=== PATIENT | female | born 2000 | race American Indian/Alaskan Native ===

== ENCOUNTER 2019-11-10 21:57 | Outpatient (CLI) | payer MEDICAID ==
[2019-11-10 22:19] VITALS: BP 123/72
== END 2019-11-10 22:45 | disposition home or self-care (01) ==
LOC: TRG 21:57 → APU 22:06 → TRG 22:45
PROVIDERS: ATTEND Obstetrics & Gynecology
DX: O42.913 Preterm premature rupture of membranes, unspecified as to length of time between rupture and onset of labor, third trimester (principal); Z3A.39 39 weeks gestation of pregnancy
CPT/HCPCS: 59025

== ENCOUNTER 2019-11-11 21:19 | Inpatient (IN) | payer MEDICAID ==
[2019-11-11] MEDS ORDERED: MINERAL OIL 30 ML ORAL LIQD PO PRN (23:15)
[2019-11-11] MEDS ORDERED: TERBUTALINE 1 MG/1 ML INJ IVP PRN (23:15)
[2019-11-11] MEDS ORDERED: ePHEDrine SULFATE 50 MG/1 ML INJ IV PRN (23:15)
[2019-11-11] MEDS ORDERED: LIDOCAINE (2%) 20 MG/1 ML VIAL 20 ML MDV INFILTRATI ONE (23:15)
[2019-11-11] MEDS ORDERED: TERBUTALINE 1 MG/1 ML INJ SUB-Q PRN (23:15)
[2019-11-11] MEDS ORDERED: BUTORPHANOL 2 MG/1 ML INJ IV PRN (23:15)
[2019-11-11] MEDS ORDERED: ONDANSETRON 4 MG/2 ML INJ IV PRN (23:15)
[2019-11-11] MEDS ORDERED: ZOLPIDEM 5 MG TAB PO PRN (23:17)
[2019-11-11] MEDS ORDERED: OXYTOCIN DRIP 30 UNITS/500 ML BAG IV SCH (23:45)
[2019-11-11] MEDS ORDERED: OXYTOCIN 20 UNIT/1000ML DRIP 20 UNITS/1,000 ML BAG IV SCH (23:45)
[2019-11-12 00:13] LABS: Hematocrit 32.4 % (30.3-42.9); Hemoglobin 10.3 gm/dl (10.1-14.3); Mean Corpuscular HGB Conc 32 % (30-34); Mean Corpuscular Volume 76 fl (79-97); Platelet Count 196 K/mm3 (140-440); Red Cell Distribution Width 17.6 % (13.2-15.2)
[2019-11-12] MEDS ORDERED: NALOXONE 2 MG/2 ML INJ IV PRN (01:52)
[2019-11-12] MEDS ORDERED: ePHEDrine SULFATE 50 MG/1 ML INJ IV PRN (01:52)
--- NOTE | 2019-11-12 01:54 | Anesthesia Consultation ---
Anesthesia Consult and Med Hx Date of service: 11/12/19 - Airway Anesthetic Teeth Evaluation: Good ROM Head & Neck: Adequate Mental/Hyoid Distance: Adequate Mallampati Class: Class II Intubation Access Assessment: Probably Good - Pulmonary Exam CTA: Yes - Cardiac Exam Cardiac Exam: RRR - Pre-Operative Health Status ASA Pre-Surgery Classification: ASA2 Proposed Anesthetic Plan: Epidural - Pulmonary Hx Smoking: No Hx Asthma: Yes ( A CHILD) Hx Respiratory Symptoms: No SOB: No COPD: No Home Oxygen Therapy: No Hx Pneumonia: No Hx Sleep Apnea: No - Cardiovascular System Hx Hypertension: No Hx Coronary Artery Disease: No Hx Heart Attack/AMI: No Hx Angina: No Hx Percutaneous Transluminal Coronary Angioplasty (PTCA): No Hx Cardia Arrhythmia: No Hx Pacemaker: No Hx Internal Defibrillator: No Hx Valvular Heart Disease: No Hx Heart Murmur: No Hx Peripheral Vascular Disease: No - Central Nervous System Hx Neuromuscular Disorder: No Hx Seizures: No CVA: No Hx Back Pain: No Hx Psychiatric Problems: No - Gastrointestinal Hx Ulcer: No Hx Gastroesophageal Reflux Disease: Yes - Endocrine Hx Renal Disease: No Hx End Stage Renal Disease: No Hx Cirrhosis: No Hx Liver Disease: No Hx Insulin Dependent Diabetes: No Hx Non-Insulin Dependent Diabetes: No Hx Thyroid Disease: No Hx Hypothyroidism: No Hx Hyperthyroidism: No - Hematic Hx Anemia: No Hx Sickle Cell Disease: No - Other Systems Hx Alcohol Use: Yes (NOT RECENTLY) Hx Substance Use: No Hx Cancer: No Hx Obesity: No
--- NOTE | 2019-11-12 01:59 | Progress Note ---
Labor Epidural - Labor Epidural Start Time: 01:23 Stop Time: 01:37 Performed by:: SOPHIA BURGER Procedure: labor Epidural Patient is requesting a laboring epidural for laboring pain. Patient IDed, H&P reviewed, all questions and concerns were answered, and consent was signed. Timeout was performed at bedside. Patient in sitting position. Sterile prep and drape was performed. [3] ml of 1% lidocaine skin wheal at L[3]- L [4]. 18- gauge Touhy epidural needle was advanced to loss of resistance with air technique to 7cm. Negative CSF negative, negative blood. Epidural catheter advanced to [12] centimeters. [negative] Aspiration [negative] test dose. Sterile dressing applied. Patient tolerated procedure.
[2019-11-12] MEDS ORDERED: fentaNYL-BUPIV 2 MCG/ML-0.125% 200 MCG/100 ML BAG EPIDURAL ONE (02:00)
[2019-11-12] MEDS: LACTATED RINGERS 1,000 ML IV SCH ×2 (02:11→08:36)
[2019-11-12] MEDS: fentaNYL-BUPIV 2 MCG/ML-0.125% 200 MCG/100 ML BAG EPIDURAL SCH ×2 (02:11→11:10)
--- NOTE | 2019-11-12 08:05 | History and Physical Report ---
History of Present Illness Date of examination: 11/12/19 Date of admission: 11/11/19 23:26 Chief complaint: contractions History of present illness: This is a 19 yo EDC 11/13/19 at 39+6 weeks here for contractions. She is patient of Dr. Mccormick here in labor. She was a transfer patient from [facility]. Past History Past Medical History: no pertinent history Past Surgical History: no surgical history Family/Genetic History: hypertension, stroke Social history: single. denies: smoking, alcohol abuse, prescription drug abuse - Obstetrical History Expected Date of Delivery: 11/13/19 Actual Gestation: 39 Week(s) 6 Day(s) : 3 Para: 0 Hx # Term Pregnancies: 0 Number of Pregnancies: 0 Spontaneous Abortions: 2 Induced : 0 Number of Living Children: 0 Medications and Allergies Allergies Allergy/AdvReac Type Severity Reaction Status Date / Time amoxicillin Allergy Rash Verified 11/11/19 23:08 Home Medications Medication Instructions Recorded Confirmed Last Taken Type No Known Home Medications [No 11/11/19 11/11/19 Unknown History Reported Home Medications] Active Meds: Active Medications Butorphanol Tartrate (Stadol) 2 mg IV Q2H PRN PRN Reason: Pain , Severe (7-10) Ephedrine Sulfate (Ephedrine Sulfate) 10 mg IV Q2M PRN PRN Reason: Hypotension Oxytocin/Sodium Chloride (Pitocin/Ns 20 Unit/1000ml Drip) 20 units in 1,000 mls @ 125 mls/hr IV DIRECT MAGGI Oxytocin/Sodium Chloride (Pitocin/Ns 30 Unit/500ml) 30 units in 500 mls @ 1 mls/hr IV TITR MAGGI; Protocol Lactated Ringer's (Lactated Ringers) 1,000 mls @ 125 mls/hr IV DIRECT MAGGI Last Admin: 11/12/19 02:11 Dose: 125 mls/hr Documented by: Fentanyl/Bupivacaine/Sodium Chlor (Fentanyl-Bupiv 2 Mcg/Ml-0.125%) 200 mcg in 100 mls @ 12 mls/hr EPIDURAL TITR MAGGI; Protocol Last Admin: 11/12/19 02:11 Dose: 12 mls/hr Documented by: Mineral Oil (Mineral Oil) 30 ml PO QHS PRN PRN Reason: Constipation Naloxone HCl (Naloxone) 0.2 mg IV Q5M PRN PRN Reason: Respiratory sedation Ondansetron HCl (Zofran) 4 mg IV Q8H PRN PRN Reason: Nausea And Vomiting Terbutaline Sulfate (Brethine) 0.25 mg SUB-Q ONCE PRN PRN Reason: Hyperstimulation/Hypertonicity Terbutaline Sulfate (Brethine) 0.25 mg IVP ONCE PRN PRN Reason: Hyperstimulation/Hypertonicity Zolpidem Tartrate (Ambien) 5 mg PO QHS PRN PRN Reason: Sleep Review of Systems All systems: negative Genitourinary: contractions - Vital Signs Vital signs: Vital Signs Temp Pulse Resp BP Pulse Ox 99.3 F 113 H 18 130/80 99 11/11/19 21:31 11/11/19 21:31 11/11/19 21:31 11/11/19 21:31 11/11/19 21:31 Temp Pulse Resp BP Pulse Ox 99.0 F 97 H 18 182/66 97 11/12/19 07:18 11/12/19 07:58 11/11/19 21:31 11/12/19 07:33 11/12/19 07:58 - Physical Exam Breasts: Positive: normal Cardiovascular: Regular rate, Normal S1 Lungs: Positive: Clear to auscultation, Normal air movement Abdomen: Positive: normal appearance, soft. Negative: distention, tenderness, guarding Genitourinary (Female): Positive: normal external genitalia, normal perenium Vagina: Positive: normal moisture Uterus: Positive: normal size Extremities: Positive: normal - Obstetrical FHR: category 1 Cervical Dilatation: 8 Cervical Effacement Percentage: 100 station: -2 Uterine Contraction Pattern: Regular Uterine Tone Measurement Phase: Contraction Uterine Contraction Intensity: Moderate Results Result Diagrams: 11/11/19 23:50 Abnormal lab results 11/11/19 Range/Units 23:50 WBC 11.9 H (4.5-11.0) K/mm3 MCV 76 L (79-97) fl MCH 24 L (28-32) pg RDW 17.6 H (13.2-15.2) % All other labs normal. Assessment and Plan A/P HD#1 active labor GBS neg offer epidural expect vaginal delivery
[2019-11-12] MEDS ORDERED: BUPIVACAINE/PF (0.25%) 2.5 MG/ML 10 ML VIAL INFILTRATI ONE (12:33)
--- NOTE | 2019-11-12 13:17 | Event Note ---
Date: 11/12/19 Patient sustaioned watson to 60s lasted 3min. She previously had meconium. Discussed NRFHT with patient and recommended primary sec with all risk discussed including but not limited to bleeding infection damage to pelvic and non pelvc organs, hysterectomy and . patient desires to proceed.
[2019-11-12] MEDS ORDERED: ONDANSETRON 4 MG/2 ML INJ IV PRN (13:37)
[2019-11-12] MEDS ORDERED: NALOXONE 0.4 MG/1 ML INJ IV PRN ×2 (13:37→14:53)
[2019-11-12] MEDS ORDERED: HYDROmorphone 1 MG/1 ML INJ IV PRN (13:37)
--- NOTE | 2019-11-12 13:37 | Anesthesia Day of Surgery ---
Anesthesia Day of Surgery - Day of Surgery Patient Examined: Yes Patient H&P Reviewed: Yes Patient is NPO: Yes Beta Blockers: No Cardiac Clearance: No Pulmonary Clearance: No Bernardo's Test: N/A
[2019-11-12] MEDS ORDERED: LIDOCAINE MPF (2%) 20 MG/1 ML VIAL 5 ML ONE (13:53)
[2019-11-12] MEDS ORDERED: WATER FOR IRRIG STERILE 1,500 ML BOTTLE IR ONE (13:55)
[2019-11-12] MEDS ORDERED: SODIUM CHLORIDE 0.9% IRR 1,500 ML BOTTLE IR ONE (13:55)
[2019-11-12] MEDS ORDERED: BICITRA ORAL LIQD 30ML PO ONE (14:00)
[2019-11-12] MEDS ORDERED: FAMOTIDINE 20 MG/2 ML INJ IV ONE (14:00)
[2019-11-12] MEDS ORDERED: LACTATED RINGERS 1,000 ML IV SCH (14:00)
[2019-11-12] MEDS ORDERED: OXYTOCIN 20 UNIT/1000ML DRIP 20 UNITS/1,000 ML BAG IV SCH ×2 (14:00→15:00)
[2019-11-12] MEDS ORDERED: METOCLOPRAMIDE 10 MG/2 ML INJ IV ONE (14:00)
[2019-11-12] MEDS ORDERED: ceFAZolin/Water 2 GM/20 ML 2 GM/20 ML SYRINGE IV NR (14:00)
[2019-11-12] MEDS ORDERED: OXYTOCIN 10 UNIT/1 ML INJ ONE (14:31)
[2019-11-12] MEDS ORDERED: METHYLERGONOVINE MALEATE 0.2 MG/ML VIAL IM ONE (14:32)
[2019-11-12] MEDS ORDERED: BUPIVACAINE/PF (0.5%) 5 MG/1 ML 30 ML VIAL INFILTRATI ONE (14:47)
[2019-11-12] MEDS ORDERED: LANOLIN/ZINC/DIMETHICONE (LANSINOH) 7 GM TP PRN (14:53)
[2019-11-12] MEDS ORDERED: WITCH HAZEL/ GLYCERIN PAD TP PRN (14:53)
--- NOTE | 2019-11-12 14:56 | Procedure Note ---
OB Delivery Note - Delivery Date of Delivery: 11/12/19 Surgeon: PJ MELARA Estimated blood loss: other (600cc) - Vaginal Delivery position: OA - Section Preop diagnosis: arrest of descent, nonreassuring FHR tracing Postop diagnosis: same section procedure: section Disposition: PACU Complications: none Narrative: see op note - A at 1 minute: 8 at 5 minutes: 9 Infant Gender: Male
--- NOTE | 2019-11-12 14:59 | Operative Report ---
Operative Report Operative Report: Operative Report: Date of procedure: November 12, 2019 Preoperative diagnosis: 1) IUP at 39+6 2) NRFHT with bradycardia to 60s 3) arrest of descent Postoperative diagnosis: Same + nuichal cord around both legs Procedure: Primary low transverse section Surgeon: Tegan Ramirez MD Anesthesia: Regional Findings: 1) Viable male , Apgars 8 and 9, weight 6 pounds 9 oz cephalic presentation. 2) Normal-appearing uterus ovaries and tubes Estimated blood loss: 600 mL IV fluids: 500 mL Urine output: 100 mL, clear at the end of the procedure Drains: Butler to gravity Specimens: None Complications:None. Counts correct x 3 Disposition: Stable to PACU Indication for procedure: Pt is a 19 year old at 39 weeks was admitted for labor and noted that bradycardia to 60s and nrfht with arrest of descent. Patient proceeded to 9cm and no cervical traveler changer several hours Operation in detail: After the risks, benefits, alternatives and complications were explained to the patient she gave informed consent for the procedure. She was subsequently taken to the operating room where regional anesthesia was noted to be adequate. She was subsequently placed in the dorsal supine position with leftward tilt and prepped and draped in a normal sterile fashion. heart tones were noted prior to incision. A timeout was performed. A Pfannenstiel skin incision was made with the knife and carried down to the layer of the fascia with the Bovie. The fascia was incised in the midline and the fascial incision was extended bilaterally with the Bovie. The fascial incision was then stretched. The rectus muscles were then in the midline and partially transected for adequate visualization. The peritoneum was then entered bluntly. The peritoneal incision was extended with good visualization of the bladder. The peritoneal incision was then stretched. The b ladder blade was then placed. A transverse incision was made in the lower uterine segment with a knife and extended bilaterally with the bandage scissors. Amniotomy was performed with egress of clear fluid. head delivered with ease, followed by shoulders and body. bulb suctioned at delivery. Cord clamped and cut. handed to NICU staff in attendance. Cord blood was collected. The placenta was then delivered manually. The uterus was then exteriorized and cleared of all clots and debris. The hysterotomy was then reapproximated with 0 Vicryl in a running locked fashion. A second layer of the same suture was used in imbricating fashion. The hysterotomy was inspected and hemostasis was noted. The gutters were irrigated and cleared of all clots and debris. The hysterotomy was again inspected and noted to be hemostatic. Surgicel was placed over the hysterotomy. The uterus was placed back in the peritoneal cavity. The peritoneum was reapproximated with 2-0 Vicryl in a running fashion incorporating the rectus muscles. Surgicel was placed over the rectus muscles. The fascia was reapproximated with 0 Vicryl in a running fashion. The subcutaneous tissue was reapproximated with 3-0 Vicryl in a running fashion. The skin was reapproximated with 4-0 Vicryl in a subcuticular fashion. The incision was then covered with steri strips and a pressure dressing. The procedure was then ended. The patient tolerated the procedure well and was taken to the PACU in stable condition. All instrument, lap, and needle counts were correct 3.
[2019-11-12 15:46] LABS: ABG Base Excess -5.2 mmol/L (-2.0-3.0); ABG Methemoglobin 0.7 % (0.0-1.5); ABG Oxygen Saturation 98.8 % (95.0-99.0); ABG PCO2 32.2 mm Hg; ABG PH 7.388 pH Units (7.350-7.450); ABG PO2 146.9 mm Hg (80.0-90.0)
--- NOTE | 2019-11-12 16:55 | Post Anesthesia Evaluation ---
- Post Anesthesia Evaluation Patient Participated: Yes Airway Patent: Yes Stable Respiratory Function: Yes Nausea/Vomiting: No Temp > 96.8F: Yes Pain Manageable: Yes Adequeate Hydration: Yes Anesthesia Complications: No Block Receding Appropriately: Yes Patient on Ventilator: No Other Comments: On arrival to PACU, pt was noted to be unresponsive to painful stimuli but responsive to cold alcohol Prep pads(70% isopropyl alcohol). She was moving her head but not opening eyes to commands. Vital Sign's remained stable thoughout. Few minutes later patient was A&OX3 and following commands but very emotional. Crying and loughing simutaneously. Stating "She is seeing floting oriange triangular shiped objects". PACU stay was uneventful after episode. Patient and boyfriend seems to think the episoide may have been related to her anxiety. ABG was WNL'S. She was discharged from PACU with all V/S stable, A&Ox3 and less anxious.
[2019-11-12] MEDS: MORPHINE 2 MG/1 ML INJ IV PRN ×2 (18:58→21:48)
[2019-11-12 19:01] LABS: Basophils % (Auto) 0.4 % (0.0-1.8); Hematocrit 30.6 % (30.3-42.9); Hemoglobin 9.6 gm/dl (10.1-14.3); Lymphocytes # (Auto) 0.7 K/mm3 (1.2-5.4); Lymphocytes % (Auto) 6.5 % (13.4-35.0); Mean Corpuscular HGB Conc 32 % (30-34); Mean Corpuscular Volume 76 fl (79-97); Monocytes # (Auto) 0.8 K/mm3 (0.0-0.8); Monocytes % (Auto) 7.4 % (0.0-7.3); Platelet Count 172 K/mm3 (140-440); Red Blood Count 4.03 M/mm3 (3.65-5.03); Red Cell Distribution Width 17.6 % (13.2-15.2)
--- NOTE | 2019-11-12 20:15 | Event Note ---
Date: 11/12/19 Was asked to evaluate the patient for decreased responsiveness after . When I went to evaluate the patient patient was alert and oriented and back to her baseline. ABG was normal. Patient was cleared to go to the floor. No sedatives or narcotics or opiates/muscle relaxants on board. Asked the nurse to check her blood glucose level.
[2019-11-13] MEDS ORDERED: D5W/LACTATED RINGERS 1,000 ML IV SCH (01:00)
[2019-11-13] MEDS: oxyCODONE /ACETAMINOPHEN 5-325MG TAB PO PRN ×4 (01:06→22:39)
[2019-11-13 05:16] LABS: Hematocrit 27.9 % (30.3-42.9); Hemoglobin 8.8 gm/dl (10.1-14.3)
--- NOTE | 2019-11-13 10:08 | Progress Note ---
Assessment and Plan A/P POD1 NRFHT and arrest of descent experienced delusion and inappropriate behavior with unresponsiveness seen by Hospitalists-no recommnedations-cleared Mental health consult sent baseline behavior today normal close monitor of maternal status Subjective - Subjective Date of service: 11/13/19 Interval history: This is a 19 yo EDC 11/13/19 at 39+6 weeks here for contractions. She is patient of Dr. Mccormick here in labor. She was a transfer patient from [facility]. Patient reports: appetite normal, voiding normally, pain well controlled, flatus, ambulating normally : doing well Objective - Vital Signs Latest vital signs: Vital Signs Temp Pulse Resp BP BP Pulse Ox 11/13/19 08:39 97.9 F 98 H 18 142/89 97 11/13/19 04:00 98.6 F 92 H 18 119/61 99 11/13/19 00:39 100.5 F H 117 H 18 129/87 98 11/12/19 20:43 99.5 F 122 H 18 133/88 100 11/12/19 18:26 103 H 99 11/12/19 17:48 98.3 F 104 H 19 132/80 11/12/19 16:30 98.0 F 11/12/19 16:13 100 H 22 126/87 100 11/12/19 16:08 100 H 18 117/87 100 11/12/19 15:50 99 H 20 128/89 99 11/12/19 15:35 94 H 12 119/83 100 11/12/19 15:20 95 H 17 128/80 99 11/12/19 15:15 95 H 17 122/74 99 11/12/19 15:10 95 H 16 121/73 99 11/12/19 15:07 98.0 F 92 H 16 115/64 99 11/12/19 13:33 81 116/65 11/12/19 13:19 85 100 11/12/19 13:14 80 100 11/12/19 13:09 82 100 11/12/19 13:04 89 99 11/12/19 13:03 91 H 124/80 11/12/19 13:01 96 H 87 11/12/19 12:59 87 99 11/12/19 12:54 104 H 100 11/12/19 12:49 109 H 99 11/12/19 12:44 132 H 100 0520 12:39 123 H 100 0520 12:34 120 H 100 05 12:33 129 H 127/81 05 12:29 117 H 100 05 12:24 117 H 100 0520 12:19 125 H 100 0520 12:14 118 H 100 05 12:09 114 H 100 05 12:04 118 H 100 05 12:03 117 H 132/69 05 11:59 119 H 100 05 11:54 113 H 100 05 11:49 124 H 100 05 11:44 118 H 100 05 11:39 111 H 99 05 11:34 121 H 99 05 11:33 115 H 124/82 05 11:29 120 H 99 05 11:24 114 H 99 05 11:19 99 H 99 05 11:14 113 H 99 05 11:09 112 H 98 05 11:04 113 H 100 05 11:03 117 H 117/67 05 10:59 109 H 99 05 10:54 107 H 100 05 10:49 94 H 100 05 10:44 101 H 99 0520 10:39 93 H 99 11/12/19 10:34 102 H 100 05 10:33 97 H 124/61 05 10:29 109 H 98 0520 10:24 129 H 98 0520 10:19 100 H 98 0520 10:14 101 H 99 0520 10:09 98 H 100 Intake and Output 05 0520 05 23:59 07:59 15:59 Intake Total 480 Output Total 800 1500 Balance -320 -1500 Intake: Intake, Free Water 480 Output: Urine 800 1500 Indwelling Catheter 800 1000 Void 500 Other: Total, Output Amount 800 500 # Voids Void 1 - Exam Breasts: Present: normal Cardiovascular: Present: Regular rate, Normal S1 Lungs: Present: Clear to auscultation, Normal air movement Abdomen: Present: normal appearance, soft, normal bowel sounds. Absent: distention, tenderness, guarding Uterus: Present: normal, firm. Absent: bogginess, tenderness, fundal height below umbilicus Extremities: Present: normal Deep Tendon Reflex Grade: Normal +2 Incision: Present: normal, dry, intact - Labs Labs: Abnormal lab results 11/12/19 11/12/19 11/13/19 Range/Units 15:40 18:37 04:23 WBC 11.2 H (4.5-11.0) K/mm3 Hgb 9.6 L 8.8 L (10.1-14.3) gm/dl Hct 27.9 L (30.3-42.9) % MCV 76 L (79-97) fl MCH 24 L (28-32) pg RDW 17.6 H (13.2-15.2) % Lymph % (Auto) 6.5 L (13.4-35.0) % Nobles % (Auto) 7.4 H (0.0-7.3) % Lymph # 0.7 L (1.2-5.4) K/mm3 Seg Neutrophils % 85.7 H (40.0-70.0) % Seg Neutrophils # 9.6 H (1.8-7.7) K/mm3 ABG pO2 146.9 H (80.0-90.0) mm Hg ABG HCO3 19.0 L (20.0-26.0) mmol/L ABG Base Excess -5.2 L (-2.0-3.0) mmol/L ABG Hemoglobin 9.6 L (12.0-16.0) gm/dl
--- NOTE | 2019-11-13 11:21 | Consultation ---
History of Present Illness - Reason for Consult Consult date: 11/13/19 Reason for consult: post delusions - History of Present Psychiatric Illness Nidia Sandoval is a 19y/o female patient who was admitted into the hospital to give . During my interview with the patient she is sitting up in bed. Her significant other and her baby are at bedside. She is a/o x 3. She is pleasant, calm and cooperative. She makes good eye contact. She smiles throughout the interview. Upon introducing myself, Nidia states to me, "they must have told you what happened yesterday." She then starts to explain to me that she was leaving the delivery room and had a period where she couldn't remember anything. She says "I couldn't remember anything right after surgery." She says "I was also talking out of my head, and seeing spots or something." She says, "but it was only for a brief time. I've never been like that before." She denies any hallucinations at present. The patient also denies any fear or feelings of endangerment. She states, "I actually feel good. I'm happy not to be feeling like I did yesterday." The patient denies SI/HI or ever having an attempt in the past. She denies illicit drug use, alcohol or nicotine use. The patient denies every seeing a psychiatrist, or ever being on any psych medications. PAST PSYCHIATRIC HISTORY: Diagnoses: Denies Suicide attempts or Self-harm behavior: Denies Prior psychiatric hospitalizations: Denies Substance Abuse history: Denies Previous psychiatric medications tried: Denies Outpatient treatment: Denies PAST MEDICAL HISTORY: None reported Family Psychiatric History: None reported or documented SOCIAL HISTORY Current living status: With parents Employment status: Employed Highest level of education: High school Marital status: Single Legal history: Denies History of abuse: Denies REVIEW OF SYSTEMS Constitutional: Negative for weight loss ENT: Negative for stridor Respiratory: Negative for cough or hemoptysis All other systems reviewed and are negative MENTAL STATUS EXAMINATION General Appearance: Dressed appropriately Behavior: calm, cooperative. Good eye contact. Pleasant. Polite. Mood: "Feel good" Affect: Congruent with stated mood Speech: Normal tone and pace Thought Process: Goal directed Thought Content: Suicidal Ideation: Denies Homicidal Ideation: Denies Hallucinations: Denies Delusions: None elicited Insight and Judgment: Good Memory/Cognition: Good Assessment Post Delusions RECOMMENDATIONS No medications given Risks, benefits and alternatives of medications discussed with the patient, questions answered and consent obtained from patient. PSYCHOTHERAPY: Supportive psychotherapy provided MEDICAL: Per primary team DELIRIUM PRECAUTIONS: Please re-orient patient frequently, keep lights on during the day, and minimize benzodiazepines and opiates as these medications could worsen patient's confusion. HEARING SCREENER: Per OBGYN/Medical Team DISPOSITION: The patient does not meet the requirement for acute inpatient psychiatric treatment. She may discharge home once cleared by her ESTIMATOR LUMBER/Medical. The patient understands that if SI/HI or feelings of endangerment are to arise she is to seek immediate assistance, including but not limited to the crisis hotline, 911 and/or ER. The patient is to follow up with outpatient psychiatry or primary in 7 to 14 days upon discharge. The plan was discussed with the patient she verbalizes agreement and understanding Will sign off. Thank you for the consult. Please contact with any questions an d/or concerns. Medications and Allergies Allergies Allergy/AdvReac Type Severity Reaction Status Date / Time amoxicillin Allergy Rash Verified 11/11/19 23:08 Home Medications Medication Instructions Recorded Confirmed Last Taken Type No Known Home Medications [No 11/11/19 11/11/19 Unknown History Reported Home Medications] Active Meds: Active Medications Butorphanol Tartrate (Stadol) 2 mg IV Q2H PRN PRN Reason: Pain , Severe (7-10) Ephedrine Sulfate (Ephedrine Sulfate) 10 mg IV Q2M PRN PRN Reason: Hypotension Oxytocin/Sodium Chloride (Pitocin/Ns 30 Unit/500ml) 30 units in 500 mls @ 1 mls/hr IV TITR MAGGI; Protocol Last Admin: 11/12/19 08:37 Dose: 1 milliunits/min, 1 mls/hr Documented by: Fentanyl/Bupivacaine/Sodium Chlor (Fentanyl-Bupiv 2 Mcg/Ml-0.125%) 200 mcg in 100 mls @ 12 mls/hr EPIDURAL TITR MAGGI; Protocol Last Admin: 11/12/19 11:10 Dose: 12 mls/hr Documented by: Oxytocin/Sodium Chloride (Pitocin/Ns 20 Unit/1000ml Drip) 20 units in 1,000 mls @ 0 mls/hr IV TITR MAGGI Oxytocin/Sodium Chloride (Pitocin/Ns 20 Unit/1000ml Drip) 20 units in 1,000 mls @ 250 mls/hr IV DIRECT MAGGI Dextrose/Lactated Ringer's (D5lr) 1,000 mls @ 125 mls/hr IV DIRECT MAGGI Last Admin: 11/13/19 01:06 Dose: 125 mls/hr Documented by: Ibuprofen (Ibuprofen) 800 mg PO Q8H PRN PRN Reason: Pain, Mild (1-3) Mineral Oil (Mineral Oil) 30 ml PO QHS PRN PRN Reason: Constipation Morphine Sulfate (Morphine) 2 mg IV Q4H PRN PRN Reason: Pain, Moderate (4-6) Last Admin: 11/12/19 21:48 Dose: 2 mg Documented by: Multi-Ingredient Ointment (Lansinoh) 1 applic TP PRN PRN PRN Reason: dryness/cracking Naloxone HCl (Naloxone) 0.2 mg IV Q5M PRN PRN Reason: Respiratory sedation Naloxone HCl (Naloxone) 0.2 mg IV Q2MIN PRN PRN Reason: Res Rate </= 8 or 02 SAT < 92% Ondansetron HCl (Zofran) 4 mg IV Q8H PRN PRN Reason: Nausea And Vomiting Oxycodone/Acetaminophen (Percocet 5/325) 2 tab PO Q6H PRN PRN Reason: Pain, Moderate (4-6) Last Admin: 11/13/19 08:36 Dose: 2 tab Documented by: Terbutaline Sulfate (Brethine) 0.25 mg SUB-Q ONCE PRN PRN Reason: Hyperstimulation/Hypertonicity Terbutaline Sulfate (Brethine) 0.25 mg IVP ONCE PRN PRN Reason: Hyperstimulation/Hypertonicity Witch Leslie/Glycerin (Tucks Pad) 1 each TP PRN PRN PRN Reason: Hemorrhoids/cleansing/soothing Zolpidem Tartrate (Ambien) 5 mg PO QHS PRN PRN Reason: Sleep Mental Status Exam - Vital signs Last Vital Signs Temp 97.9 F 11/13/19 08:39 Pulse 98 H 11/13/19 08:39 Resp 18 11/13/19 08:39 BP 142/89 11/13/19 08:39 Pulse Ox 97 11/13/19 08:39 Results Result Diagrams: 11/13/19 04:23 Abnormal lab results 11/12/19 11/12/19 11/13/19 Range/Units 15:40 18:37 04:23 WBC 11.2 H (4.5-11.0) K/mm3 Hgb 9.6 L 8.8 L (10.1-14.3) gm/dl Hct 27.9 L (30.3-42.9) % MCV 76 L (79-97) fl MCH 24 L (28-32) pg RDW 17.6 H (13.2-15.2) % Lymph % (Auto) 6.5 L (13.4-35.0) % [place] % (Auto) 7.4 H (0.0-7.3) % Lymph # 0.7 L (1.2-5.4) K/mm3 Seg Neutrophils % 85.7 H (40.0-70.0) % Seg Neutrophils # 9.6 H (1.8-7.7) K/mm3 ABG pO2 146.9 H (80.0-90.0) mm Hg ABG HCO3 19.0 L (20.0-26.0) mmol/L ABG Base Excess -5.2 L (-2.0-3.0) mmol/L ABG Hemoglobin 9.6 L (12.0-16.0) gm/dl All other labs normal.
--- NOTE | 2019-11-14 03:07 | Progress Note ---
Assessment and Plan A/P POD2 NRFHT and arrest of descent experienced delusion and inappropriate behavior with unresponsiveness seen by Hospitalists-no recommnedations-cleared appreciated the mental health and [facility] d/c home tomorrow Subjective - Subjective Date of service: 11/14/19 Principal diagnosis: s/p primary cesec Interval history: This is a 19 yo EDC 11/13/19 at 39+6 weeks here for contractions. She is patient of Dr. Mccormick here in labor. She was a transfer patient from [facility]. Patient reports: appetite normal, voiding normally, pain well controlled, flatus, ambulating normally [place]: doing well Objective - Vital Signs Latest vital signs: Vital Signs Temp Pulse Resp BP BP Pulse Ox 11/13/19 23:39 18 11/13/19 23:28 98.9 F 101 H 18 123/67 98 11/13/19 22:39 18 11/13/19 17:22 97.3 F L 104 H 18 118/67 97 11/13/19 12:31 98.1 F 83 18 119/72 98 11/13/19 08:39 97.9 F 98 H 18 142/89 97 11/13/19 04:00 98.6 F 92 H 18 119/61 99 - Exam Breasts: Present: normal Cardiovascular: Present: Regular rate, Normal S1 Lungs: Present: Clear to auscultation, Normal air movement Abdomen: Present: normal appearance, soft, normal bowel sounds. Absent: distention, tenderness, guarding Uterus: Present: normal, firm, fundal height below umbilicus. Absent: bogginess, tenderness Extremities: Present: normal Deep Tendon Reflex Grade: Normal +2 Incision: Present: normal, dry, intact - Labs Labs: Abnormal lab results 11/13/19 Range/Units 04:23 Hgb 8.8 L (10.1-14.3) gm/dl Hct 27.9 L (30.3-42.9) %
[2019-11-14] MEDS: oxyCODONE /ACETAMINOPHEN 5-325MG TAB PO PRN ×2 (09:31→17:40)
[2019-11-14] MEDS ORDERED: ONDANSETRON 4 MG ODT TAB PO PRN (10:00)
[2019-11-15] MEDS: IBUPROFEN 800 MG TAB PO PRN ×2 (01:12→11:24)
--- NOTE | 2019-11-15 09:02 | Progress Note ---
Assessment and Plan POD 3 s/p ltcs. Doing well. Plan for discharge on today. Subjective - Subjective Date of service: 11/15/19 Principal diagnosis: s/p primary cesec Patient reports: appetite normal, voiding normally, pain well controlled, amb ulating normally [place]: doing well Objective - Vital Signs Latest vital signs: Vital Signs Temp Pulse Resp BP BP Pulse Ox 11/15/19 02:12 18 11/15/19 01:12 18 11/14/19 23:30 97.6 F 92 H 17 106/62 100 11/14/19 18:40 18 11/14/19 15:52 97.6 F 91 H 14 108/58 97 Intake and Output 11/14/19 11/15/19 11/15/19 22:59 06:59 14:59 Intake Total 240 Balance 240 Intake: Oral 240 Other: Total, Intake Amount 120 Voiding Method Toilet # Voids 1 Void 1 1 - Exam Breasts: Present: deferred Cardiovascular: Present: Regular rate, Normal S1, Normal S2 Lungs: Present: Clear to auscultation, Normal air movement Abdomen: Present: normal appearance, soft, normal bowel sounds Uterus: Present: normal, firm Incision: Present: normal, dry, intact
--- NOTE | 2019-11-15 09:03 | Discharge Summary ---
Providers - Providers Date of Admission: 11/11/19 23:26 Date of discharge: 11/15/19 Attending physician: TAINA SHIELDS 11/13/19 08:20 Consult to Mental Health [CONS] Urgent Reason For Exam: post delusions Primary care physician: TAINA SHIELDS Hospitalization Reason for admission: active labor, rupture of membranes Delivery: Procedure: primary low transverse Incision: normal, dry, intact complications: none Discharge diagnosis: IUP at term delivered [place] baby: male Hospital course: unremarkable Condition at discharge: Good Disposition: [id number] TO HOME OR SELFCARE Plan - Discharge Medications Prescriptions: Docusate Sodium [Colace] 100 mg PO BID PRN #60 capsule PRN Reason: Constipation Ferrous Sulfate [Feosol 325 MG tab] 325 mg PO BID #60 tablet Ibuprofen [Motrin] 800 mg PO Q8HR PRN #40 tablet PRN Reason: Pain, Mild (1-3) oxyCODONE /ACETAMINOPHEN [Percocet 5/325] 2 tab PO Q6HR PRN #40 tablet PRN Reason: Pain - Provider Discharge Summary Activity: routine, no sex for 6 weeks, no heavy lifting 4 weeks, no strenuous exercise Diet: routine Instructions: routine Additional instructions: [] Smoking cessation referral if applicable(refer to patient education folder for contact #) [] Refer to [facility]'s [facility] Booklet Call your doctor immediately for: * Fever > 100.5 * Heavy vaginal bleeding ( >1 pad per hour) * Severe persistent headache * Shortness of breath * Reddened, hot, painful area to leg or breast * Drainage or odor from incision. * Keep incision clean and dry at all times and follow doctor's instructions regarding bathing/showering - Follow up plan Follow up: TAINA SHIELDS MD [Primary Care Provider] - 14 Days
[2019-11-15 15:01] VITALS: BP 98/53
== END 2019-11-15 16:00 | disposition home or self-care (01) | DRG 765 ==
LOC: TRG 21:19 → APU 21:24 → TRG 23:26 → LD 23:26 → OB 11-12 17:21
PROVIDERS: ADMIT Obstetrics & Gynecology; ATTEND Obstetrics & Gynecology
PROC: 10D00Z1 Extraction of Products of Conception, Low, Open Approach (ICD-10-PCS; principal; 2019-11-12)
PROC: 4A033R1 Measurement of Arterial Saturation, Peripheral, Percutaneous Approach (ICD-10-PCS; 2019-11-12)
DX: O76 Abnormality in fetal heart rate and rhythm complicating labor and delivery (principal); D62 Acute posthemorrhagic anemia; Z3A.39 39 weeks gestation of pregnancy; Z37.0 Single live birth; K21.9 Gastro-esophageal reflux disease without esophagitis; J45.909 Unspecified asthma, uncomplicated; O75.0 Maternal distress during labor and delivery; Z82.49 Family history of ischemic heart disease and other diseases of the circulatory system; Z82.3 Family history of stroke; O69.81X0 Labor and delivery complicated by cord around neck, without compression, not applicable or unspecified; O99.52 Diseases of the respiratory system complicating childbirth; O99.62 Diseases of the digestive system complicating childbirth; O99.344 Other mental disorders complicating childbirth; F22 Delusional disorders; O90.81 Anemia of the puerperium
CPT/HCPCS: 36415; 59025; 82803; 82962; 85014; 85018; 85025; 85027; 86850; 86900; 86901; G0378; J0690; J2210; J2270; J2405; J2590; J2765; J7120; J7121; Q0162